=== PATIENT | female | born 1955 | race Caucasian/White ===

== ENCOUNTER 2023-04-24 11:16 | Day surgery (SDC) | payer MEDICARE ==
[2023-04-24] MEDS ORDERED: LIDOCAINE HCL 2% 100 MG/5 ML IJ ONE (11:17)
[2023-04-24] MEDS ORDERED: DIPRIVAN 200 MG/20 ML IV ONE (14:39)
[2023-04-24] MEDS ORDERED: Lactated Ringers 1,000 ML IV ONE (15:03)
--- NOTE | 2023-04-24 16:40 | XRAY ---
Indication: Left C2-C4 MBB. Intraoperative fluoroscopy provided for 13 seconds. 2 digital spot image submitted for interpretation demonstrates posterior needle tips projecting over the expected left C2-C4 nerve roots. Correlate with intraoperative findings/report.
--- NOTE | 2023-04-24 16:46 | XRAY ---
13 seconds of fluoroscopy was used in surgery for a left C2-C4 MBB.
== END 2023-04-24 15:11 | disposition home or self-care (01) ==
LOC: SDC-PAIN 11:16
PROVIDERS: ATTEND Psychiatry & Neurology Pain Medicine
DX: M47.812 Spondylosis without myelopathy or radiculopathy, cervical region (principal)
CPT/HCPCS: 64490; 64491; 72040; 77002; J2704

== ENCOUNTER 2023-05-22 06:41 | Day surgery (SDC) | payer MEDICARE ==
[2023-05-22] MEDS ORDERED: BUPIVACAINE 0.5% VIAL IJ ONE (06:42)
[2023-05-22] MEDS ORDERED: Lactated Ringers 1,000 ML IV ONE (09:41)
--- NOTE | 2023-05-22 09:49 | XRAY ---
Indication: Left C2-C4 MBB. Intraoperative fluoroscopy provided for 14 seconds. 2 digital spot images submitted for interpretation demonstrates posterior needle tips projecting over expected left C2-C4 nerve roots. Correlate with intraoperative findings/report.
[2023-05-22] MEDS ORDERED: DIPRIVAN 200 MG/20 ML IV ONE (10:09)
--- NOTE | 2023-05-22 10:59 | XRAY ---
14 seconds of fluoroscopy was used in surgery for a left C2-C4 MBB.
== END 2023-05-22 09:20 | disposition home or self-care (01) ==
LOC: SDC-PAIN 06:41
PROVIDERS: ATTEND Psychiatry & Neurology Pain Medicine
DX: M47.812 Spondylosis without myelopathy or radiculopathy, cervical region (principal)
CPT/HCPCS: 64490; 64491; 72040; 77002; J2704

== ENCOUNTER 2023-08-21 10:43 | Day surgery (SDC) | payer MEDICARE ==
[2023-08-21] MEDS ORDERED: Lactated Ringers 1,000 ML IV ONE (12:11)
[2023-08-21] MEDS ORDERED: DIPRIVAN 200 MG/20 ML IV ONE ×2 (12:30→12:43)
--- NOTE | 2023-08-21 15:28 | XRAY ---
Indication: Left C2-C4 RFA. Intraoperative fluoroscopy provided for 28 seconds. 2 digital spot image submitted for interpretation demonstrates posterior needle tips projecting over the expected left and C2-C4 nerve roots. Correlate with intraoperative findings/report.
--- NOTE | 2023-08-21 16:51 | XRAY ---
28 seconds of fluoroscopy was used in surgery for a left C2-C4 RFA.
== END 2023-08-21 13:15 | disposition home or self-care (01) ==
LOC: SDC-PAIN 10:43
PROVIDERS: ATTEND Psychiatry & Neurology Pain Medicine
DX: M47.812 Spondylosis without myelopathy or radiculopathy, cervical region (principal)
CPT/HCPCS: 64633; 64634; 72040; 77002; J2704